=== PATIENT | female | born 1935 | race Caucasian/White ===

== ENCOUNTER 2023-01-30 11:30 | Emergency (ER) | payer OTHER ==
[2023-01-30 11:41] VITALS: TEMP 97.8; BMI 28.3
[2023-01-30 12:25] VITALS: RESP 16
[2023-01-30 12:48] LABS: BASO % 0.5 % (0-2.0); EOS % 0.2 % (0-4.5); HEMATOCRIT 37.6 % (32.4-45.2); HEMOGLOBIN 12.8 GM/dL (10.7-15.3); LYMPH % 24.9 % (8-40); MCHC 34.1 g/dl (32.0-36.0); MEAN PLT VOLUME 6.7 fl (7.5-11.1); MONO % 5.9 % (3.8-10.2); NEUT % 68.5 % (42.8-82.8); PLATELET COUNT 235 10^3/uL (134-434); RBC 4.76 M/mm3 (3.60-5.2); RDW 13.8 % (11.6-15.6); WHITE BLOOD COUNT 8.3 K/mm3 (4.0-10.0)
[2023-01-30 13:11] VITALS: BP 94/60; PULSE 53
[2023-01-30 13:14] LABS: POTASSIUM 3.8 mmol/L (3.5-5.1)
[2023-01-30 13:17] LABS: ALBUMIN 3.7 g/dl (3.4-5.0); BLOOD UREA NITROGEN 24.4 mg/dL (7-18); MAGNESIUM 1.8 mg/dL (1.8-2.4)
[2023-01-30 13:20] LABS: CREATININE 1.3 mg/dL (0.55-1.3)
[2023-01-30 13:21] LABS: BILIRUBIN,TOTAL 0.4 mg/dL (0.2-1)
== END 2023-01-30 14:42 | disposition left against medical advice (07) ==
LOC: JER 11:30
DX: R00.2 Palpitations (principal); I48.91 Unspecified atrial fibrillation; R42 Dizziness and giddiness
CPT/HCPCS: 36415; 71045-TC-FY; 80053; 83735; 84443; 84484; 85025; 85379; 93005; 93010; 99285-25